=== PATIENT | male | born 1965 | race Caucasian/White ===

== ENCOUNTER 2016-07-21 21:57 | Emergency (ER) | payer OTHER ==
[~2016-07-21] VITALS: Ht 185.4 cm; Wt 95.7 kg
[2016-07-22 00:54] LABS: BASOPHIL % 1.1 % (0-2); PLATELET COUNT 279 x10^3mcL (130-400)
[2016-07-22 00:56] LABS: RED CELL DISTRIBUTION WIDTH 14.7 % (11.5-14.5)
[2016-07-22 01:02] LABS: CALCIUM 8.9 mg/dL (8.5-10.1); CARBON DIOXIDE 31.1 mmol/L (21-32); CHLORIDE SERUM 103 mmol/L (98-107); GFR1 > 60 mL/min; GLUCOSE SERUM 88 mg/dL (74-106); POTASSIUM SERUM 4.4 mmol/L (3.5-5.1); SODIUM SERUM 139 mmol/L (136-145)
[2016-07-22 01:07] LABS: ALBUMIN 3.8 g/dL (3.4-5.0); ALKALINE PHOSPHATASE 61 U/L (46-116); ALT/SGPT 119 U/L (16-63); AMYLASE 55 U/L (25-115); AST/SGOT 68 U/L (15-37); BILIRUBIN TOTAL 0.5 mg/dL (0.20-1.00); LIPASE 206 IU/L (73-393)
[2016-07-22 03:11] VITALS: BP 141/88
== END 2016-07-22 03:11 | disposition home or self-care (01) ==
LOC: ED 21:57
PROVIDERS: Emergency Medicine
DX: S30.1XXA Contusion of abdominal wall, initial encounter (principal); W22.8XXA Striking against or struck by other objects, initial encounter; Y93.89 Activity, other specified; Y92.89 Other specified places as the place of occurrence of the external cause; Y99.8 Other external cause status
CPT/HCPCS: J7030; Q9967

== ENCOUNTER 2018-03-12 23:21 | Emergency (ER) | payer SELFPAY ==
[~2018-03-12] VITALS: Ht 185.4 cm; Wt 90.7 kg
[2018-03-12 23:37] VITALS: Ht 185.4 cm; Wt 90.7 kg
[2018-03-13 00:53] VITALS: BP 133/78
== END 2018-03-13 01:01 | disposition other institution (70) ==
LOC: ED 23:21
DX: L02.413 Cutaneous abscess of right upper limb (principal); F15.10 Other stimulant abuse, uncomplicated; F17.210 Nicotine dependence, cigarettes, uncomplicated; Z90.49 Acquired absence of other specified parts of digestive tract
CPT/HCPCS: J2001

== ENCOUNTER 2018-03-12 23:21 | Emergency (ER) | payer OTHER | END 2018-03-13 01:01 | disposition other institution (70) | LOC: ED 23:21 | DX: Z02.89 Encounter for other administrative examinations (principal) ==